=== PATIENT | female | born 1970 | race Hispanic/Latino ===

== ENCOUNTER 2023-11-15 01:34 | Emergency (ER) | payer BC ==
[~2023-11-15] VITALS: Ht 162.6 cm; Wt 77.1 kg
[2023-11-15 02:03] LABS: BASOPHILS # (AUTO) 0.05 K/uL (0.00-0.20); BASOPHILS % (AUTO) 0.8 % (0.0-5.0); EOSINOPHILS # (AUTO) 0.23 K/uL (0.00-0.70); EOSINOPHILS % (AUTO) 3.5 % (0.0-8.0); HEMATOCRIT 41.7 % (36-48); IMMATURE GRANULOCYTE ABSOLUTE 0.01 K/uL (0-1); LYMPHOCYTES % (AUTO) 30.9 % (21.0-51.0); MEAN CORPUSCULAR HEMOGLOBIN 30.5 pg (27.0-33.0); MEAN CORPUSCULAR HGB CONC 33.1 g/dL (32.0-36.0); MEAN CORPUSCULAR VOLUME 92.1 fL (79-99); MONOCYTES # (AUTO) 0.6 K/uL (0.1-1.0); MONOCYTES % (AUTO) 9.5 % (3.0-13.0); NEUTROPHILS # (AUTO) 3.6 K/uL (1.8-7.7); NEUTROPHILS % (AUTO) 55.1 % (40.0-77.0); PLATELET COUNT (AUTO) 331 K/uL (130-400); RED BLOOD CELL COUNT(AUTO) 4.53 MIL/uL (4.00-5.50); RED CELL DISTRIBUTION WIDTH 13.3 % (11.0-15.5); WHITE BLOOD COUNT (AUTO) 6.6 K/uL (4.8-10.8)
[2023-11-15] MEDS: KETOROLAC 15MG/ML VIAL (15MG/ML) IV STA (02:06)
[2023-11-15 02:07] LABS: APPEARANCE,URINE CLEAR (CLEAR); BILIRUBIN,URINE NEGATIVE (NEGATIVE); COLOR,URINE COLORLESS (YELLOW); GLUCOSE, URINE (UA) NEGATIVE (NEGATIVE); KETONES,URINE NEGATIVE (NEGATIVE); LEUKOCYTE ESTERASE ,URINE NEGATIVE Leu/uL (NEGATIVE); NITRATE,URINE NEGATIVE (NEGATIVE); OCCULT BLOOD,URINE NEGATIVE (NEGATIVE); PH,URINE 5.5 (5.0-8.0); PROTEIN,URINE NEGATIVE (NEGATIVE); UROBILINOGEN,URINE 0.2 mg/dL (0.2-1.0)
[2023-11-15] MEDS: ONDANSETRON 4MG INJ IVP STA (02:07)
[2023-11-15] MEDS: DICYCLOMINE HCL 20 MG TAB PO STA (02:07)
[2023-11-15 02:15] LABS: ADD UA MICROSCOPIC NO
[2023-11-15 02:49] LABS: CREATININE 0.9 mg/dL (0.5-1.0); POTASSIUM 3.4 mmol/L (3.5-5.1)
[2023-11-15 05:31] VITALS: BP 100/60; PULSE 75; RESP 18; O2SAT 100
== END 2023-11-15 05:34 | disposition short-term general hospital (02) ==
LOC: EDH 01:34
DX: K81.0 Acute cholecystitis (principal)
CPT/HCPCS: 99285; 96374; 76705; 96375; 80048; 83690; 85025; 81003; 36415; J2405; J1885